=== PATIENT | male | born 1930 | race Hispanic/Latino ===

== ENCOUNTER → 2017-09-06 | Outpatient (CLI) | payer MEDICARE ==
[~2017-09-06] VITALS: Ht 152.4 cm; Wt 59.9 kg
[~2017-09-06] MED LIST: AMOX-426 PO; CARV3.12 PO; DONE5TAB33 PO; FURO40TA5 PO; ISOS10TA8 PO; REGADENOSON 0.4 MG/5 ML PF SYG IVP SCH; SPIR50TA5 OD; TEMA15CA PO; VALS160T29 PO; WARF-57 PO
== END | disposition home or self-care (01) ==
LOC: SHCH 08:08
PROVIDERS: ATTEND Internal Medicine Cardiovascular Disease
DX: I25.10 Atherosclerotic heart disease of native coronary artery without angina pectoris (principal); I13.0 Hypertensive heart and chronic kidney disease with heart failure and stage 1 through stage 4 chronic kidney disease, or unspecified chronic kidney disease; E11.22 Type 2 diabetes mellitus with diabetic chronic kidney disease; I50.22 Chronic systolic (congestive) heart failure; N18.9 Chronic kidney disease, unspecified; I48.91 Unspecified atrial fibrillation
CPT/HCPCS: 78452; 93017; 96374; A9500 ×2; J2785